=== PATIENT | female | born 1960 | race Two or more races ===

== ENCOUNTER → 2021-08-15 | Outpatient (CLI) | payer BC | END | disposition home or self-care (01) | LOC: XYW 08:18 | DX: S32.019A Unspecified fracture of first lumbar vertebra, initial encounter for closed fracture (principal); M41.86 Other forms of scoliosis, lumbar region; X58.XXXA Exposure to other specified factors, initial encounter; Y93.89 Activity, other specified; Y92.89 Other specified places as the place of occurrence of the external cause; Y99.8 Other external cause status | CPT/HCPCS: 78306; A9503 ==

== ENCOUNTER 2022-03-30 18:50 | Emergency (ER) | payer BC ==
[~2022-03-30] VITALS: Ht 167.6 cm; Wt 85.0 kg
[2022-03-30 19:20] VITALS: BP 143/95
== END 2022-03-30 21:16 | disposition home or self-care (01) ==
LOC: ER 18:50 → EDBD 18:50 → ER 21:16
DX: S09.90XA Unspecified injury of head, initial encounter (principal); F10.10 Alcohol abuse, uncomplicated; E78.5 Hyperlipidemia, unspecified; W18.39XA Other fall on same level, initial encounter; Y93.89 Activity, other specified; Y92.89 Other specified places as the place of occurrence of the external cause; Y99.8 Other external cause status; Y90.9 Presence of alcohol in blood, level not specified
CPT/HCPCS: 70450

== ENCOUNTER 2023-12-19 12:15 | Emergency (ER) | payer OTHER, MEDICAID ==
[~2023-12-19] VITALS: Ht 170.2 cm; Wt 65.9 kg
[2023-12-19 13:30] VITALS: PULSE 78; RESP 16; O2SAT 95
[2023-12-19 14:00] VITALS: BP 124/77; PULSE 93; RESP 97; O2SAT 97
== END 2023-12-19 14:21 | disposition left against medical advice (07) ==
LOC: ER 12:15 → EDBD 12:15 → ER 14:21
DX: F10.10 Alcohol abuse, uncomplicated (principal); Z53.21 Procedure and treatment not carried out due to patient leaving prior to being seen by health care provider